=== PATIENT | female | born 1960 | race Caucasian/White ===

== ENCOUNTER 2019-02-20 17:02 | Inpatient (IN) | payer OTHER ==
[~2019-02-20] VITALS: Ht 170.2 cm; Wt 83.9 kg
[~2019-02-20 17:02] MED LIST: AMITRIPTYLINE H25 M1 PO; ASPI325T6 PO; CALCIUM + D 6001 TAB PO; CELEBREX 200MG200 MG PO; ESTRACE 1MG1 MG/TAB PO; HCTZ 25MG TAB25 MG PO; MOBIC 7.5MG7.5 MG PO; NORCO 325 MG-7.1 TAB PO; SYNTHROID0.075 MG/T PO; ZESTRIL 10MG10 MG PO
[2019-02-20 17:24] VITALS: BP 150/80; PULSE 88; TEMP 98
[2019-02-20] MEDS ORDERED: HYDRODIURIL50 MG PO (17:47)
[2019-02-20] MEDS ORDERED: AMITRIPTYLINE H50 M1 PO (17:48)
[2019-02-20] MEDS ORDERED: ESTRACE2 MG PO (17:51)
[2019-02-20] MEDS ORDERED: VOLTAREN GEL 1%1 TU TOP (17:54)
[2019-02-20] MEDS ORDERED: TOPAMAX 25MG25 M1 PO (17:55)
[2019-02-20] MEDS ORDERED: ULTRAM 50MG TAB50 MG PO (17:56)
[2019-02-20] MEDS ORDERED: ZOSTRIX-HP0.075% TOP (17:58)
[2019-02-20 18:46] LABS: HEMATOCRIT 44.1 % (37.0-47.0); MEAN CELL VOLUME 92 fl (80.0-100.0); MEAN CORPUSCULAR HEMOGLOBIN 31 pg (27.0-31.0); MEAN CORPUSCULAR HGB CONC 34 g/dl (33.0-37.0); MEAN PLATELET VOLUME 11.7 fl (7.4-10.4); PLATELET COUNT 182 K/mm3 (130-400); REDCELL DISTRIBUTION WIDTH-CV 13.5 % (11.5-14.5)
[2019-02-20 19:11] VITALS: BP 123/59; PULSE 87; TEMP 98.7
[2019-02-20 19:16] LABS: BAND 9 % (0-10); LYMPHOCYTE 1 % (20.0-51.0); METAMYELOCYTE 1 % (0-0); NEUTROPHILS 87 % (42.0-75.2)
[2019-02-20 19:18] LABS: PLATELET ESTIMATE NORMAL (NORMAL)
[2019-02-20 19:56] VITALS: BP 150/79; PULSE 93; TEMP 98.9
--- NOTE | 2019-02-20 20:11 | NUR ---
Pt transfer from [facility] this afternoon, has C/O pain and medications given for relief, pain level down to 5/10 prevous to medication 10/10, pain mainly in her abdominal area at this time, initial assessments completed.
--- NOTE | 2019-02-20 20:13 | NUR ---
report given to DARYA Knapp.
--- NOTE | 2019-02-20 20:30 | NUR ---
Initial shift assessment done- states abd pain 10/15- abd very tender,was just given some Morphine about an hour ago- states nausea is better after Zofran- did take some water/popsicle- Tele on, SCD,s on, IV fluids at 150cc/hr, Has had 3 very small bloody stools in the past 2-3 hors-- calls for assistance to [facility]
[2019-02-20 23:39] VITALS: BP 120/67; PULSE 106; TEMP 99.1
[2019-02-21 00:32] LABS: HEMATOCRIT 40.5 % (37.0-47.0); HEMOGLOBIN 13.7 g/dl (12.5-16.0)
[2019-02-21 04:02] VITALS: BP 137/72; PULSE 97; TEMP 98.6
--- NOTE | 2019-02-21 04:40 | NUR ---
Medicated with Morphine and Zofran at this time- states abd pain 02/14--has had 4-5 small cloody stools all shift - hgb stable at 13.7
[2019-02-21 06:14] LABS: HEMATOCRIT 40.1 % (37.0-47.0); HEMOGLOBIN 13.6 g/dl (12.5-16.0); MEAN CELL VOLUME 91 fl (80.0-100.0); MEAN CORPUSCULAR HEMOGLOBIN 31 pg (27.0-31.0); MEAN CORPUSCULAR HGB CONC 34 g/dl (33.0-37.0); MEAN PLATELET VOLUME 11.6 fl (7.4-10.4); PLATELET COUNT 187 K/mm3 (130-400); REDCELL DISTRIBUTION WIDTH-CV 13.4 % (11.5-14.5)
[2019-02-21 06:27] LABS: ALBUMIN 3.1 gm/dL (3.5-5.0); BILIRUBIN,TOTAL 0.5 mg/dL (0.0-1.0); CALCIUM 8.1 mg/dL (8.4-10.2); CREATININE, serum 0.88 (0.52-1.25); MAGNESIUM 1.9 mg/dL (1.6-2.3); POTASSIUM 3.1 mmol/L (3.4-5.0); TOTAL PROTEIN 6.1 gm/dL (6.4-8.2)
[2019-02-21 07:05] LABS: LYMPHOCYTE 8 % (20.0-51.0); NEUTROPHILS 89 % (42.0-75.2); PLATELET ESTIMATE NORMAL (NORMAL)
--- NOTE | 2019-02-21 08:02 | NUR ---
PATIENT ASSESSMENT COMPLETED. SHE COMPLAINS OF PAIN AND NAUSEA. I HAVE PROVIDED HER WITH 2MG MORPHINE IVP AT THIS TIME. AND WILL CONTACT DR. FERNANDES MORE NAUSEA MEDICATION. SHE DENIES OTHER NEEDS AT THIS TIME. PAIN IS SEVERE CRAMPING ABDOMEN
[2019-02-21 08:36] VITALS: BP 141/72; PULSE 94; TEMP 99.1
[2019-02-21 12:54] VITALS: BP 135/71; PULSE 101; TEMP 99
--- NOTE | 2019-02-21 14:30 | NUR ---
PRN 2MG IVP MORPHINE GIVEN FOR ABDOMEN PAIN. AT BEDSIDE.
--- NOTE | 2019-02-21 15:31 | NUR ---
NEW ORDER HAS BEEN OBTAINED AND GIVEN TO PATIENT FOR HER COMPLAINTS OF NAUSEA. PHENERGAN INFUSION AND MORPHINE IVP GIVEN FOR HER PAIN. NO OTHER NEEDS EXPRESSED AT THIS TIME
[2019-02-21 17:00] VITALS: BP 142/69; PULSE 109; TEMP 99
--- NOTE | 2019-02-21 18:50 | NUR ---
PATIENT COMPLAINS OF NAUSEA AND PAIN. PRN ZOFRAN AND MORPHINE GIVEN FOR THIS.
--- NOTE | 2019-02-21 20:00 | NUR ---
Initial shift assessment done- denies need for Morphine/Zofran at this time-states she has been able to take a few bites of jello/sips of juices, Iv fluids of NS at 100cc/hr, Mendez with clear yellow urine
[2019-02-21 21:05] VITALS: BP 141/68; PULSE 110; TEMP 99.3
[2019-02-21 23:52] VITALS: BP 135/63; PULSE 106; TEMP 98.9
[2019-02-22] VITALS (7 sets, daily range): BP systolic 128–147; BP diastolic 70–95; PULSE 82–107; TEMP 97.4–98.8
--- NOTE | 2019-02-22 05:31 | NUR ---
Quiet night tonight- states slept fairly well,, did get Morphine for abd pain around 0330, only dose given this shift, did have a liquid brown/red stool around MN {about 50-75cc} was given Immodium at that time-
[2019-02-22 07:17] LABS: BASO % 0.2 % (0.0-2.0); EOS % 0.1 % (0-4.0); GRAN # 13.8 (1.4-6.5); GRAN % 86.9 % (42.2-75.2); HEMOGLOBIN 11.9 g/dl (12.5-16.0); LYMPH # 1.1 (1.2-3.4); LYMPH % 7.1 % (20.0-51.0); MEAN CELL VOLUME 92 fl (80.0-100.0); MEAN CORPUSCULAR HEMOGLOBIN 31 pg (27.0-31.0); MEAN CORPUSCULAR HGB CONC 34 g/dl (33.0-37.0); MEAN PLATELET VOLUME 12.1 fl (7.4-10.4); MONO # 0.8 (0.1-0.6); PLATELET COUNT 160 K/mm3 (130-400); RED BLOOD COUNT 3.85 M/mm3 (4.10-5.30); REDCELL DISTRIBUTION WIDTH-CV 13.8 % (11.5-14.5)
[2019-02-22 07:18] LABS: HEMATOCRIT 35.5 % (37.0-47.0)
--- NOTE | 2019-02-22 07:40 | NUR ---
PRN 2 TABS OF TYLENOL GIVEN FOR COMPLAINTS OF A HEADACHE AT THE BASE OF HEAD.
[2019-02-22 07:58] LABS: CALCIUM 7.6 mg/dL (8.4-10.2); CREATININE, serum 0.75 (0.52-1.25); MAGNESIUM 1.9 mg/dL (1.6-2.3); POTASSIUM 3.2 mmol/L (3.4-5.0)
--- NOTE | 2019-02-22 08:45 | NUR ---
PATIENT ASSESSMENT COMPLETED. SHE REPORTS SOME NAUSEA AND LITTLE PAIN BUT DOESN'T WANT ANYTHING AT THIS TIME.
--- NOTE | 2019-02-22 11:54 | NUR ---
PATIENT COMPLAINS OF ABDOMEN PAIN AFTER GOING TO THE RESTROOM SHE AMBULATES TO THE RESTROOM WITH 1 ASSIST STEADY BUT SLOW ON HER FEET. 1 TAB [place] PROVIDED
--- NOTE | 2019-02-22 13:07 | NUR ---
Plan: Plan to return home unless SX worsen. Assess: SW met with patient about DC, Patient reports that she lives locally with her spouse EMELY . Patient reports the use of a walker PRN. Patient reports that she does not have a a DPOA, uses any other DME, and does not have any HHS. Patient reports that her RX is from [facility] or [facility] on [address]. Action: Patient may need additional support as she starts to feel better, will continue to follow care.
--- NOTE | 2019-02-22 15:20 | NUR ---
PATIENT CONTINUES TO COMPLAIN OF HEADACHE PRN NORCO GIVEN 1 TAB
--- NOTE | 2019-02-22 16:42 | NUR ---
PATIENT COMES TO THE DESK AND REPORTS THAT KEYON VOMITED AND HAD A LITTLE DIARRHEA. PRN ZOFRAN GIVEN IVP
--- NOTE | 2019-02-22 17:10 | NUR ---
IMMODIUM GIVEN PER REQUEST
--- NOTE | 2019-02-22 17:15 | NUR ---
PATIENT VOMITS SMALL AMOUNT OF LIQUID PRN MORPHINE 2MG IVP GIVEN AND PHENERGAN IV WILL BE GIVEN FOR THE CONTINUED NAUSEA.
--- NOTE | 2019-02-22 21:30 | NUR ---
Report received from DARYA Mann. Patient resting in bed. Shift assessment completed at this time. Patient was willing to take night meds. Denied having any pain. Alert and oriented. IV patent, NS running at 75 ml/hr. Patient does have puffy feet. Mendez catheter in place. Denied any further needs at this time. Call light within reach.
[2019-02-23 03:23] VITALS: BP 145/75; PULSE 87; TEMP 98.6
--- NOTE | 2019-02-23 06:12 | NUR ---
Patient had an uneventful night. Received antibiotics. Denied any pain throughout the night. Fluids running at 75 ml/hr. Denies further needs at this time. Call light within reach.
[2019-02-23 06:57] LABS: BASO % 0.4 % (0.0-2.0); EOS # 0.1 (0.0-0.7); EOS % 0.9 % (0-4.0); GRAN # 8.6 (1.4-6.5); GRAN % 80.6 % (42.2-75.2); HEMOGLOBIN 10.9 g/dl (12.5-16.0); LYMPH # 1.3 (1.2-3.4); MEAN CELL VOLUME 93 fl (80.0-100.0); MEAN CORPUSCULAR HEMOGLOBIN 31 pg (27.0-31.0); MEAN CORPUSCULAR HGB CONC 34 g/dl (33.0-37.0); MONO # 0.6 (0.1-0.6); MONO % 5.4 % (1.7-9.3); PLATELET COUNT 148 K/mm3 (130-400); RED BLOOD COUNT 3.49 M/mm3 (4.10-5.30); REDCELL DISTRIBUTION WIDTH-CV 14.1 % (11.5-14.5)
[2019-02-23 06:58] LABS: HEMATOCRIT 32.4 % (37.0-47.0)
--- NOTE | 2019-02-23 07:02 | NUR ---
Report given to DARYA Garces.
[2019-02-23 07:20] LABS: CALCIUM 7.6 mg/dL (8.4-10.2); CREATININE, serum 0.74 (0.52-1.25); POTASSIUM 3.2 mmol/L (3.4-5.0)
--- NOTE | 2019-02-23 07:31 | NUR ---
Received report from DARYA Brito.
--- NOTE | 2019-02-23 08:27 | NUR ---
Pt awake and alert upon entry, no C/O pain at this time, shift assessments complete, left Pt call light in reach, bed in lowest position.
[2019-02-23 09:29] VITALS: BP 142/72; PULSE 97; TEMP 98.5
[2019-02-23 11:34] VITALS: BP 137/78; PULSE 92; TEMP 98.9
--- NOTE | 2019-02-23 12:41 | NUR ---
Initial visit; Patient thanked [employer] for offering God's blessings and keeping her in [employer]'s prayers.
--- NOTE | 2019-02-23 18:00 | NUR ---
Mendez catheter removed, tip intact, Pt tolerated procedure well.
[2019-02-23 18:32] VITALS: BP 155/87; PULSE 93; TEMP 98.2
--- NOTE | 2019-02-23 18:47 | NUR ---
Pt resting in room today, Pt spent time sitting up in the recliner, C/O pain / discomfort in lower legs, VS have remaind stable.
--- NOTE | 2019-02-23 19:21 | NUR ---
Report given to DARYA Brito.
--- NOTE | 2019-02-23 19:54 | NUR ---
Report received from DARYA Garces. Patient resting in bed. at bedside. Eating dinner. Vitals within normal limits. Shift assessment completed at this time. Bowels active. Alert and oriented. IV patent, flushed. Denied having any pain. Pulses strong, both radial and pedal. Denies karen further needs at this time. Call light within reach.
[2019-02-23 21:00] VITALS: BP 141/81; PULSE 88; TEMP 98.5
[2019-02-24 01:00] VITALS: BP 152/86; PULSE 84; TEMP 97.7
[2019-02-24 03:50] VITALS: BP 141/73; PULSE 83; TEMP 98.5
--- NOTE | 2019-02-24 05:52 | NUR ---
Patient had uneventful night. Resting in bed. Denied any pain throughout shift. Call light within reach.
--- NOTE | 2019-02-24 06:44 | NUR ---
Report given to DARYA Garces.
[2019-02-24 07:31] VITALS: BP 148/79; PULSE 78; TEMP 98.2
[2019-02-24 07:48] LABS: BASO % 0.3 % (0.0-2.0); EOS # 0.2 (0.0-0.7); EOS % 1.6 % (0-4.0); GRAN # 7.1 (1.4-6.5); GRAN % 76.7 % (42.2-75.2); HEMOGLOBIN 11.7 g/dl (12.5-16.0); LYMPH # 1.4 (1.2-3.4); LYMPH % 15.1 % (20.0-51.0); MEAN CELL VOLUME 92 fl (80.0-100.0); MEAN CORPUSCULAR HEMOGLOBIN 31 pg (27.0-31.0); MEAN CORPUSCULAR HGB CONC 34 g/dl (33.0-37.0); MEAN PLATELET VOLUME 11.2 fl (7.4-10.4); MONO # 0.6 (0.1-0.6); MONO % 5.9 % (1.7-9.3); PLATELET COUNT 194 K/mm3 (130-400); RED BLOOD COUNT 3.77 M/mm3 (4.10-5.30); REDCELL DISTRIBUTION WIDTH-CV 13.9 % (11.5-14.5)
[2019-02-24 07:51] LABS: HEMATOCRIT 34.7 % (37.0-47.0)
[2019-02-24 07:59] LABS: CALCIUM 8.1 mg/dL (8.4-10.2); CREATININE, serum 0.65 (0.52-1.25); POTASSIUM 3.4 mmol/L (3.4-5.0)
[2019-02-24] MEDS ORDERED: AMOXICILLIN 8751 TAB PO (11:04)
[2019-02-24 11:38] VITALS: BP 131/75; PULSE 83; TEMP 98.7
--- NOTE | 2019-02-24 12:10 | NUR ---
Pt awake and alert, sitting up in bed, no C/O pain at this time just mild discomfort in abdomen, shift assessments complete, left Pt call light in reach, bed in lowest position.
--- NOTE | 2019-02-24 12:40 | NUR ---
Pt discharged to home, escorted to entrance, left with spouse via private auto.
== END 2019-02-24 12:30 | disposition home or self-care (01) | DRG 683 ==
LOC: MEDICAL 17:02
PROVIDERS: Nurse Practitioner Family; Physician Assistant; ADMIT Internal Medicine
DX: N17.9 Acute kidney failure, unspecified (principal); K92.1 Melena; A09 Infectious gastroenteritis and colitis, unspecified; E86.0 Dehydration; I95.9 Hypotension, unspecified; E87.6 Hypokalemia; I10 Essential (primary) hypertension; E03.9 Hypothyroidism, unspecified; Z96.642 Presence of left artificial hip joint; Z79.890 Hormone replacement therapy; Z79.82 Long term (current) use of aspirin
CPT/HCPCS: OP; 99223-AI; 99232-AI; 99233-AI; 99239; C9113; J1650; J2270; J2405; J2543; J2550; J7030